=== PATIENT | male | born 1965 | race Caucasian/White ===

== ENCOUNTER 2017-03-11 15:58 | Inpatient (IN) | payer OTHER ==
[2017-03-11 19:19] VITALS: BMI 20.9
--- NOTE | 2017-03-11 22:03 | HP ---
CIWA Score - CIWA Score Nausea/Vomitin-Mild Nausea/No Vomiting Muscle Tremors: 4-Moderate,w/Arms Extend Anxiety: 4-Mod. Anxious/Guarded Agitation: 4-Moderately Restless Paroxysmal Sweats: 1-Minimal Palms Moist Orientation: 0-Oriented Tacttile Disturbances: 0-None Auditory Disturbances: 0-None Visual Disturbances: 0-None Headache: 0-None Present CIWA-Ar Total Score: 14 Admission ROS BHS - HPI Chief Complaint: WITHDRAWAL SX Allergies/Adverse Reactions: Allergies Allergy/AdvReac Type Severity Reaction Status Date / Time fish derived [Fish derived] Allergy Severe Hives Verified 10/16/11 10:43 penicillin G Allergy Severe Hives Verified 10/16/11 10:43 History of Present Illness: 51 YEARS OLD MALE WITH LONG HISTORY OF ALCOHOL COCAINE NICOTINE DEPENDENCE HAS HIV ASTHMA AND BIPOLAR II IS ADMITTED TO DETOX Exam Limitations: No Limitations - Ebola screening Have you traveled outside of the country in the last 21 days: No Have you had contact with anyone from an Ebola affected area: No Have you been sick,other than usual withdrawal symptoms: No Do you have a fever: No - Review of Systems Constitutional: Loss of Appetite, Changes in sleep, Unintentional Wgt. Loss, Unexplained wgt Loss EENT: reports: No Symptoms Reported Respiratory: reports: No Symptoms reported Cardiac: reports: No Symptoms Reported GI: reports: Nausea, Poor Appetite, Poor Fluid Intake, Abdominal cramping : reports: No Symptoms Reported Musculoskeletal: reports: No Symptoms Reported Integumentary: reports: Change in Color (BOTH ARMS IV OPIATE) Neuro: reports: Tremors Endocrine: reports: No Symptoms Reported Hematology: reports: No Symptoms Reported Psychiatric: reports: Judgement Intact, Orientated x3, Anxious, Depressed Other Systems: Reviewed and Negative Patient History - Patient Medical History Hx Anemia: No Hx Asthma: Yes (currently on treatment) Hx Chronic Obstructive Pulmonary Disease (COPD): No Hx Cancer: No Hx Cardiac Disorders: No Hx Congestive Heart Failure: No Hx Hypertension: No Hx Hypercholesterolemia: No Hx Pacemaker: No HX Cerebrovascular Accident: No Hx Seizures: No Hx Dementia: No Hx Diabetes: No Hx Gastrointestinal Disorders: No Hx Liver Disease: No Hx Genitourinary Disorders: No Hx Sexually Transmitted Disorders: No Hx Renal Disease (ESRD): No Hx Thyroid Disease: No Hx Human Immunodeficiency Virus (HIV): Yes (1986) Hx Hepatitis C: Yes Hx Depression: No Hx Suicide Attempt: No Hx Bipolar Disorder: Yes Hx Schizophrenia: No - Patient Surgical History Past Surgical History: No Hx Neurologic Surgery: No Hx Cataract Extraction: No Hx Cardiac Surgery: No Hx Lung Surgery: No Hx Breast Surgery: No Hx Breast Biopsy: No Hx Abdominal Surgery: No Hx Appendectomy: No Hx Cholecystectomy: No Hx Genitourinary Surgery: No Hx Orthopedic Surgery: No - PPD History Previous Implant?: Yes Documented Results: Negative w/proof Implanted On Prior [facility] Admission?: Yes Date: 12/15/10 Results: 0 mm PPD to be Administered?: Yes - Smoking Cessation Smoking history: Current every day smoker Have you smoked in the past 12 months: Yes Aproximately how many cigarettes per day: 3 Cigars Per Day: 0 Hx Chewing Tobacco Use: No Initiated information on smoking cessation: Yes 'Breaking Loose' booklet given: 03/11/17 - Substance & Tx. History Hx Alcohol Use: Yes Hx Substance Use: Yes Substance Use Type: Alcohol, Cocaine, Heroin, Opiates Hx Substance Use Treatment: Yes (2011) - Substances Abused Alcohol Route: Oral Frequency: Daily Amount used: PINT RUM Age of first use: 8 Date of Last Use: 03/11/17 Family Disease History - Family Disease History Family Disease History: Other: Father (NO CONTACT), Mother (NO CONTACT) Other Family History: ONLY CHILD Admission Physical Exam BHS - Vital Signs Vital Signs: Vital Signs - 24 hr 03/11/17 19:16 Temperature 97.6 F Pulse Rate 87 Respiratory 20 Rate Blood Pressure 127/79 - Physical General Appearance: Yes: Appropriately Dressed, Mild Distress, Thin, Tremorous, Irritable, Sweating, Anxious HEENTM: Yes: Hearing grossly Normal, Normal ENT Inspection, Normocephalic, Normal Voice Respiratory: Yes: Chest Non-Tender, Lungs Clear, Normal Breath Sounds, No Respiratory Distress, No Accessory Muscle Use Neck: Yes: Supple, Trachea in good position Breast: Yes: Breasts Symetrical Cardiology: Yes: Regular Rhythm, Regular Rate, S1, S2 Abdominal: Yes: Non Tender, Soft Genitourinary: Yes: Within Normal Limits Back: Yes: Normal Inspection Musculoskeletal: Yes: full range of Motion, Gait Steady Extremities: Yes: Normal Range of Motion, Non-Tender, Tremors Neurological: Yes: Fully Oriented, Alert, Motor Strength 5/5, Normal Response, Depressed Affect Integumentary: Yes: Warm, Track [place] Lymphatic: Yes: Within Normal Limits - Diagnostic (1) Alcohol dependence with uncomplicated withdrawal Current Visit: Yes Status: Acute (2) HIV (human immunodeficiency virus infection) Current Visit: Yes Status: Chronic Comment: PATIENT DOES NOT BRING IN HIS MEDICATION (3) Methadone maintenance therapy patient Current Visit: Yes Status: Chronic Comment: 75 MG VERIFICATION PENDING (4) Asthma Current Visit: Yes Status: Chronic Qualifiers: Asthma severity: mild Asthma persistence: intermittent Asthma complication type: with status asthmaticus Qualified Code(s): J45.22 - Mild intermittent asthma with status asthmaticus; J45.22 - Mild intermittent asthma with status asthmaticus; J45.22 - Mild intermittent asthma with status asthmaticus (5) Nicotine dependence Current Visit: Yes Status: Acute Qualifiers: Nicotine product type: cigarettes Substance use status: in withdrawal Qualified Code(s): F17.213 - Nicotine dependence, cigarettes, with withdrawal; F17.213 - Nicotine dependence, cigarettes, with withdrawal (6) Weight loss Current Visit: Yes Status: Acute (7) Bipolar II disorder Current Visit: Yes Status: Suspected Cleared for Admission S - Detox or Rehab [facility] Level of Care: Medically Managed Detox Regimen/Protocol: Librium [facility] Breath Alcohol Content Breath Alcohol Content: 0 Urine Drug Screen - Results Drug Screen Negative: No Urine Drug Screen Results: ZOHREH-Cocaine, OPI-Opiates, MTD-Methadone
[2017-03-11] MEDS ORDERED: LOPERAMIDE HCL 2 MG CAPSULE PO PRN (22:08)
[2017-03-11] MEDS ORDERED: MENTHOL/PHENOL 1 EACH UD MM PRN (22:08)
[2017-03-11] MEDS ORDERED: MAGNESIUM CITRATE 300 ML BOTTLE PO PRN (22:08)
[2017-03-11] MEDS ORDERED: guaiFENesin/D-METHORPHAN HB 10 ML UNIT-DOSE CUPS PO PRN (22:08)
[2017-03-11] MEDS ORDERED: NICOTINE POLACRILEX 2 MG GUM BC PRN (22:08)
[2017-03-11] MEDS ORDERED: diphenhydrAMINE HCL 50 MG CAPSULE PO PRN (22:08)
[2017-03-11] MEDS ORDERED: MAGNESIUM HYDROX 2400MG/30ML ORAL SUSPENSION 30 ML CUP PO PRN (22:08)
[2017-03-11] MEDS ORDERED: MAG HYDROX/AL HYDROX/SIMETH 30 ML UNIT-DOSE CUP PO PRN (22:08)
[2017-03-11] MEDS ORDERED: IBUPROFEN 400 MG TABLET (FP) PO PRN (22:08)
[2017-03-11] MEDS ORDERED: chlordiazePOXIDE HCL 25 MG CAPSULE PO PRN (22:08)
[2017-03-11] MEDS ORDERED: P-EPHED 60MG/TRIPROLIDI 2.5MG TABLET PO PRN (22:08)
[2017-03-11] MEDS ORDERED: ALBUTEROL SO4 18 GM HFA INHALER IH PRN (22:12)
[2017-03-11] MEDS ORDERED: BACLOFEN 10 MG TABLET (FP) PO PRN (22:13)
[2017-03-12] MEDS: chlordiazePOXIDE HCL 25 MG CAPSULE PO SCH ×5 (01:48→22:20)
[2017-03-12 02:00] LABS: URINE APPEARANCE CLEAR; URINE BILIRUBIN NEGATIVE (NEGATIVE); URINE BLOOD NEGATIVE (NEGATIVE); URINE COLOR YELLOW; URINE GLUCOSE (UA) NEGATIVE (NEGATIVE); URINE KETONE NEGATIVE (NEGATIVE); URINE NITRITE NEGATIVE (NEGATIVE); URINE PROTEIN NEGATIVE (NEGATIVE); URINE UROBILINOGEN NEGATIVE mg/dL (0.2-1.0)
[2017-03-12] MEDS ORDERED: METHADONE HCL 10 MG TABLET PO ONE (08:53)
[2017-03-12] MEDS ORDERED: METHADONE 40 MG, METHADONE 30 MG, METHADONE 5 MG PO ONE (09:08)
[2017-03-12 09:18] LABS: URINE LEUK ESTERASE Negative (NEGATIVE)
[2017-03-12 09:45] LABS: MCH 30.3 pg (25.7-33.7); MCHC 33.4 g/dl (32.0-35.9); MEAN CELL VOLUME 90.6 fl (80-96); MEAN PLT VOLUME 8.5 fl (7.5-11.1); PLATELET COUNT 129 K/MM3 (134-434); RDW 13.7 % (11.9-15.9); WHITE BLOOD COUNT 3.4 K/mm3 (4.0-10.0)
[2017-03-12] MEDS ORDERED: METHADONE HCL 5 MG TABLET ONE (10:01)
[2017-03-12] MEDS ORDERED: METHADONE HCL 10 MG TABLET ONE (10:01)
[2017-03-12] MEDS ORDERED: METHADONE HCL 40 MG DISPERSABLE TABLET ONE (10:02)
[2017-03-12] MEDS: PRENATAL VITAMINS W/ FOLIC ACID TABLET (FP) PO SCH (10:14)
[2017-03-12] MEDS: NICOTINE 14 MG/24 HOURS TOPICAL PATCH TD SCH (10:14)
[2017-03-12 10:32] LABS: ALBUMIN 3.3 g/dl (3.4-5.0); ALK PHOS 93 U/L (45-117); ANION GAP 11 (8-16); BILIRUBIN,TOTAL 0.5 mg/dL (0.2-1.0); CO2 25 mmol/L (21-32); CREATININE 1.2 mg/dL (0.7-1.3); GLUCOSE,RANDOM 90 mg/dL (74-106); SGOT/AST 21 U/L (15-37); SGPT/ALT 19 U/L (12-78)
--- NOTE | 2017-03-12 10:45 | PN ---
[facility] CIWA - CIWA Score Nausea/Vomitin-No Nausea/No Vomiting Muscle Tremors: 4-Moderate,w/Arms Extend Anxiety: 4-Mod. Anxious/Guarded Agitation: 4-Moderately Restless Paroxysmal Sweats: 1-Minimal Palms Moist Orientation: 0-Oriented Tacttile Disturbances: 3-Moderate Itch/Numb/Burn Auditory Disturbances: 0-None Visual Disturbances: 0-None Headache: 0-None Present CIWA-Ar Total Score: 16 BHS Progress Note (SOAP) Subjective: ANXIETY,IRRITABILITY, TREMORS,INTERMITTENT SLEEP. Objective: 03/12/17 10:44 Vital Signs 03/12/17 03/12/17 03/12/17 03:31 06:00 09:20 Temperature 97.7 F 97.1 F L Pulse Rate 71 70 Respiratory 18 18 18 Rate Blood Pressure 131/75 122/69 Laboratory Last Values WBC 3.4 K/mm3 (4.0-10.0) L D 03/12/17 07:00 RBC 3.18 M/mm3 (4.00-5.60) L 03/12/17 07:00 Hgb 9.6 GM/dL (11.7-16.9) L 03/12/17 07:00 Hct 28.8 % (35.4-49) L 03/12/17 07:00 MCV 90.6 fl (80-96) 03/12/17 07:00 MCH 30.3 pg (25.7-33.7) 03/12/17 07:00 MCHC 33.4 g/dl (32.0-35.9) 03/12/17 07:00 RDW 13.7 % (11.9-15.9) 03/12/17 07:00 Plt Count 129 K/MM3 (134-434) L D 03/12/17 07:00 MPV 8.5 fl (7.5-11.1) 03/12/17 07:00 Urine Color Yellow 03/11/17 23:29 Urine Appearance Clear 03/11/17 23:29 Urine pH 6.0 (5.0-8.0) 03/11/17 23:29 Ur Specific [place] 1.020 (1.005-1.025) 03/11/17 23:29 Urine Protein Negative (NEGATIVE) 03/11/17 23:29 Urine Glucose (UA) Negative (NEGATIVE) 03/11/17 23:29 Urine Ketones Negative (NEGATIVE) 03/11/17 23:29 Urine Blood Negative (NEGATIVE) 03/11/17 23:29 Urine Nitrite Negative (NEGATIVE) 03/11/17 23:29 Urine Bilirubin Negative (NEGATIVE) 03/11/17 23:29 Urine Urobilinogen Negative mg/dL (0.2-1.0) 03/11/17 23:29 Ur Leukocyte Esterase Negative (NEGATIVE) 03/11/17 23:29 RPR Titer Nonreactive (NONREACTIVE) 03/12/17 07:00 Assessment: 03/12/17 10:45 WITHDRAWAL SX Plan: CONTINUE DETOX
--- NOTE | 2017-03-12 14:18 | CONSULT ---
[facility] Psychiatric Consult - Data Date of interview: 03/12/17 Admission source: [facility] Identifying data: Readmission to [facility] for this 51 y/o male seeking detox treatment on 3 for heroin,alcohol anc cocaine dependence.Patient is single without children,domiciled,unemployed and supported on [employer] benefits. Substance Abuse History: Confirmed by patient in this session. Smoking Cessation. Smoking history: Current every day smoker. Have you smoked in the past 12 months: Yes. Aproximately how many cigarettes per day: 3. Cigars Per Day: 0. Hx Chewing Tobacco Use: No. Initiated information on smoking cessation : Yes. 'Breaking Loose' booklet given: 03/11/17. - Substance & Tx. History. Hx Alcohol Use: Yes. Hx Substance Use: Yes. Substance Use Type: Alcohol, Cocaine, Heroin, Opiates. Hx Substance Use Treatment: Yes (2011). - Substances Abused. Alcohol. Route: Oral. Frequency: Daily. Amount used: PINT RUM. Age of first use: 8. Date of Last Use: 03/11/17 Medical History: HIV infection since 1986 (on ART medications). Psychiatric History: No history of psychiatric hospitalizations.Mr Moreira is currently on methadone maintenance (75 mg/day). Physical/Sexual Abuse/Trauma History: Denies. Additional Comment: Urine Drug Screen Results: ZOHREH-Cocaine, OPI-Opiates, MTD- Methadone.Noted. Mental Status Exam - Mental Status Exam Alert and Oriented to: Time, Place, Person Cognitive Function: Good Patient Appearance: Well Groomed Mood: Hopeful, Euthymic Affect: Appropriate, Normal Range Patient Behavior: Fatigued, Appropriate, Cooperative Speech Pattern: Clear Voice Loudness: Normal Thought Process: Intact, Goal Oriented Thought Disorder: Not Present Hallucinations: Denies Suicidal Ideation: Denies Homicidal Ideation: Denies Insight/Judgement: Poor Sleep: Poorly, Difficulty falling asleep Appetite: Good Muscle strength/Tone: Normal Gait/Station: Normal Psychiatric Findings - Problem List ([place] 1, 2,3) (1) Alcohol dependence with uncomplicated withdrawal Current Visit: Yes Status: Acute (2) Cocaine dependence Current Visit: Yes Status: Acute (3) Opioid dependence on agonist therapy Current Visit: Yes Status: Acute (4) Nicotine dependence Current Visit: Yes Status: Acute Qualifiers: Nicotine product type: cigarettes Substance use status: in withdrawal Qualified Code(s): F17.213 - Nicotine dependence, cigarettes, with withdrawal; F17.213 - Nicotine dependence, cigarettes, with withdrawal (5) Weight loss Current Visit: Yes Status: Chronic (6) Asthma Current Visit: Yes Status: Chronic Qualifiers: Asthma severity: mild Asthma persistence: intermittent Asthma complication type: uncomplicated Qualified Code(s): J45.20 - Mild intermittent asthma, uncomplicated; J45.20 - Mild intermittent asthma, uncomplicated; J45.20 - Mild intermittent asthma, uncomplicated (7) HIV (human immunodeficiency virus infection) Current Visit: Yes Status: Chronic Comment: PATIENT DOES NOT BRING IN HIS MEDICATION (8) Insomnia Current Visit: Yes Status: Acute - Initial Treatment Plan Initial Treatment Plan: Psychoeducation.Detoxification.Ambien 10 mg po hs.Patient is made aware of potential for parasomnias.Observation.
[2017-03-12] MEDS: THIAMINE HCL 100 MG TABLET (FP) PO SCH (22:20)
[2017-03-12] MEDS: ZOLPIDEM TARTRATE 10 MG TABLET (PARK CARE ONLY) PO PRN (22:20)
[2017-03-13] MEDS ORDERED: METHADONE HCL 10 MG TABLET ONE (04:02)
[2017-03-13] MEDS ORDERED: METHADONE HCL 5 MG TABLET ONE (04:03)
[2017-03-13] MEDS ORDERED: METHADONE HCL 40 MG DISPERSABLE TABLET ONE (04:03)
[2017-03-13] MEDS: chlordiazePOXIDE HCL 25 MG CAPSULE PO SCH ×3 (05:33→16:36)
[2017-03-13] MEDS: METHADONE 40 MG, METHADONE 30 MG, METHADONE 5 MG PO SCH (05:33)
[2017-03-13] MEDS ORDERED: METHADONE HCL 10 MG TABLET PO SCH (06:00)
[2017-03-13] MEDS: PRENATAL VITAMINS W/ FOLIC ACID TABLET (FP) PO SCH (10:12)
[2017-03-13] MEDS: NICOTINE 14 MG/24 HOURS TOPICAL PATCH TD SCH (10:12)
--- NOTE | 2017-03-13 11:08 | PN ---
[facility] CIWA - CIWA Score Nausea/Vomitin-No Nausea/No Vomiting Muscle Tremors: 4-Moderate,w/Arms Extend Anxiety: 4-Mod. Anxious/Guarded Agitation: 4-Moderately Restless Paroxysmal Sweats: 1-Minimal Palms Moist Orientation: 0-Oriented Tacttile Disturbances: 3-Moderate Itch/Numb/Burn Auditory Disturbances: 0-None Visual Disturbances: 0-None Headache: 0-None Present CIWA-Ar Total Score: 16 BHS Progress Note (SOAP) Subjective: ANXIETY,SWEATS,TREMORS,IRRITABILITY. Objective: 03/13/17 11:07 Vital Signs Temperature 97.7 F 03/13/17 09:26 Pulse Rate 77 03/13/17 09:26 Respiratory Rate 18 03/13/17 09:26 Blood Pressure 107/60 03/13/17 09:26 O2 Sat by Pulse Oximetry (%) Laboratory Last Values WBC 3.4 K/mm3 (4.0-10.0) L D 03/12/17 07:00 RBC 3.18 M/mm3 (4.00-5.60) L 03/12/17 07:00 Hgb 9.6 GM/dL (11.7-16.9) L 03/12/17 07:00 Hct 28.8 % (35.4-49) L 03/12/17 07:00 MCV 90.6 fl (80-96) 03/12/17 07:00 MCH 30.3 pg (25.7-33.7) 03/12/17 07:00 MCHC 33.4 g/dl (32.0-35.9) 03/12/17 07:00 RDW 13.7 % (11.9-15.9) 03/12/17 07:00 Plt Count 129 K/MM3 (134-434) L D 03/12/17 07:00 MPV 8.5 fl (7.5-11.1) 03/12/17 07:00 Sodium 140 mmol/L (136-145) 03/12/17 07:00 Potassium 4.5 mmol/L (3.5-5.1) 03/12/17 07:00 Chloride 104 mmol/L (98-107) 03/12/17 07:00 Carbon Dioxide 25 mmol/L (21-32) 03/12/17 07:00 Anion Gap 11 (8-16) 03/12/17 07:00 BUN 21 mg/dL (7-18) H 03/12/17 07:00 Creatinine 1.2 mg/dL (0.7-1.3) D 03/12/17 07:00 Creat Clearance w eGFR > 60 (>60) 03/12/17 07:00 Random Glucose 90 mg/dL (74-106) 03/12/17 07:00 Calcium 8.0 mg/dL (8.5-10.1) L 03/12/17 07:00 Total Bilirubin 0.5 mg/dL (0.2-1.0) D 03/12/17 07:00 AST 21 U/L (15-37) 03/12/17 07:00 ALT 19 U/L (12-78) 03/12/17 07:00 Alkaline Phosphatase 93 U/L (45-117) 03/12/17 07:00 Total Protein 7.0 g/dl (6.4-8.2) 03/12/17 07:00 Albumin 3.3 g/dl (3.4-5.0) L 03/12/17 07:00 Urine Color Yellow 03/11/17 23:29 Urine Appearance Clear 03/11/17 23:29 Urine pH 6.0 (5.0-8.0) 03/11/17 23:29 Ur Specific [place] 1.020 (1.005-1.025) 03/11/17 23:29 Urine Protein Negative (NEGATIVE) 03/11/17 23:29 Urine Glucose (UA) Negative (NEGATIVE) 03/11/17 23:29 Urine Ketones Negative (NEGATIVE) 03/11/17 23:29 Urine Blood Negative (NEGATIVE) 03/11/17 23:29 Urine Nitrite Negative (NEGATIVE) 03/11/17 23:29 Urine Bilirubin Negative (NEGATIVE) 03/11/17 23:29 Urine Urobilinogen Negative mg/dL (0.2-1.0) 03/11/17 23:29 Ur Leukocyte Esterase Negative (NEGATIVE) 03/11/17 23:29 RPR Titer Nonreactive (NONREACTIVE) 03/12/17 07:00 Assessment: 03/13/17 11:07 WITHDRAWAL SX Plan: CONTINUE DETOX
--- NOTE | 2017-03-13 11:58 | EKG ---
Test Reason : Blood Pressure : / mmHG Vent. Rate : 065 BPM Atrial Rate : 065 BPM P-R Int : 116 ms QRS Dur : 088 ms QT Int : 438 ms P-R-T Axes : 016 055 053 degrees QTc Int : 455 ms NORMAL SINUS RHYTHM NORMAL ECG NO PREVIOUS ECGS AVAILABLE Confirmed by JORY GOMEZ, TAMI ([id number]) on 03/13/2017 11:58:38 AM Referred By: Confirmed By:TAMI CORLEY MD
[2017-03-13] MEDS: ZOLPIDEM TARTRATE 10 MG TABLET (PARK CARE ONLY) PO PRN (22:17)
[2017-03-13] MEDS: THIAMINE HCL 100 MG TABLET (FP) PO SCH (22:18)
[2017-03-13] MEDS: chlordiazePOXIDE 5 MG CAPSULE PO SCH (22:18)
[2017-03-14] MEDS ORDERED: METHADONE HCL 40 MG DISPERSABLE TABLET ONE (04:27)
[2017-03-14] MEDS ORDERED: METHADONE HCL 10 MG TABLET ONE (04:27)
[2017-03-14] MEDS ORDERED: METHADONE HCL 5 MG TABLET ONE (04:28)
[2017-03-14] MEDS: METHADONE 40 MG, METHADONE 30 MG, METHADONE 5 MG PO SCH (05:36)
[2017-03-14] MEDS: chlordiazePOXIDE 5 MG CAPSULE PO SCH ×3 (05:36→18:02)
[2017-03-14] MEDS: PRENATAL VITAMINS W/ FOLIC ACID TABLET (FP) PO SCH (10:13)
[2017-03-14] MEDS: NICOTINE 14 MG/24 HOURS TOPICAL PATCH TD SCH (10:15)
--- NOTE | 2017-03-14 10:17 | PN ---
BHS Progress Note (SOAP) Subjective: SLIGHT ANXIETY,IRRITABILITY,FATIGUE.OOB AMBULATING WITH STAEDY GAIT. Objective: 03/14/17 10:16 Vital Signs Temperature 98.2 F 03/14/17 09:16 Pulse Rate 90 03/14/17 09:16 Respiratory Rate 20 03/14/17 09:16 Blood Pressure 105/58 03/14/17 09:16 O2 Sat by Pulse Oximetry (%) Laboratory Last Values WBC 3.4 K/mm3 (4.0-10.0) L D 03/12/17 07:00 RBC 3.18 M/mm3 (4.00-5.60) L 03/12/17 07:00 Hgb 9.6 GM/dL (11.7-16.9) L 03/12/17 07:00 Hct 28.8 % (35.4-49) L 03/12/17 07:00 MCV 90.6 fl (80-96) 03/12/17 07:00 MCH 30.3 pg (25.7-33.7) 03/12/17 07:00 MCHC 33.4 g/dl (32.0-35.9) 03/12/17 07:00 RDW 13.7 % (11.9-15.9) 03/12/17 07:00 Plt Count 129 K/MM3 (134-434) L D 03/12/17 07:00 MPV 8.5 fl (7.5-11.1) 03/12/17 07:00 Sodium 140 mmol/L (136-145) 03/12/17 07:00 Potassium 4.5 mmol/L (3.5-5.1) 03/12/17 07:00 Chloride 104 mmol/L (98-107) 03/12/17 07:00 Carbon Dioxide 25 mmol/L (21-32) 03/12/17 07:00 Anion Gap 11 (8-16) 03/12/17 07:00 BUN 21 mg/dL (7-18) H 03/12/17 07:00 Creatinine 1.2 mg/dL (0.7-1.3) D 03/12/17 07:00 Creat Clearance w eGFR > 60 (>60) 03/12/17 07:00 Random Glucose 90 mg/dL (74-106) 03/12/17 07:00 Calcium 8.0 mg/dL (8.5-10.1) L 03/12/17 07:00 Total Bilirubin 0.5 mg/dL (0.2-1.0) D 03/12/17 07:00 AST 21 U/L (15-37) 03/12/17 07:00 ALT 19 U/L (12-78) 03/12/17 07:00 Alkaline Phosphatase 93 U/L (45-117) 03/12/17 07:00 Total Protein 7.0 g/dl (6.4-8.2) 03/12/17 07:00 Albumin 3.3 g/dl (3.4-5.0) L 03/12/17 07:00 Urine Color Yellow 03/11/17 23:29 Urine Appearance Clear 03/11/17 23:29 Urine pH 6.0 (5.0-8.0) 03/11/17 23:29 Ur Specific [place] 1.020 (1.005-1.025) 03/11/17 23:29 Urine Protein Negative (NEGATIVE) 03/11/17 23:29 Urine Glucose (UA) Negative (NEGATIVE) 03/11/17 23:29 Urine Ketones Negative (NEGATIVE) 03/11/17 23:29 Urine Blood Negative (NEGATIVE) 03/11/17 23:29 Urine Nitrite Negative (NEGATIVE) 03/11/17 23:29 Urine Bilirubin Negative (NEGATIVE) 03/11/17 23:29 Urine Urobilinogen Negative mg/dL (0.2-1.0) 03/11/17 23:29 Ur Leukocyte Esterase Negative (NEGATIVE) 03/11/17 23:29 RPR Titer Nonreactive (NONREACTIVE) 03/12/17 07:00 Assessment: 03/14/17 10:16 WITHDRAWAL SX Plan: CONTINUE DETOX
[2017-03-14] MEDS: ACETAMINOPHEN 325 MG TABLET (FP) PO PRN (18:02)
[2017-03-14] MEDS: THIAMINE HCL 100 MG TABLET (FP) PO SCH ×2 (22:28→22:31)
[2017-03-14] MEDS: chlordiazePOXIDE HCL 10 MG CAPSULE PO SCH (22:29)
[2017-03-14] MEDS: ZOLPIDEM TARTRATE 10 MG TABLET (PARK CARE ONLY) PO PRN (22:29)
[2017-03-15] MEDS: ACETAMINOPHEN 325 MG TABLET (FP) PO PRN (01:12)
[2017-03-15] MEDS ORDERED: METHADONE HCL 10 MG TABLET ONE ×2 (04:29→08:44)
[2017-03-15] MEDS ORDERED: METHADONE HCL 5 MG TABLET ONE ×2 (04:30→08:44)
[2017-03-15] MEDS ORDERED: METHADONE HCL 40 MG DISPERSABLE TABLET ONE ×2 (04:30→08:44)
[2017-03-15] MEDS: METHADONE 40 MG, METHADONE 30 MG, METHADONE 5 MG PO SCH (05:46)
[2017-03-15] MEDS: chlordiazePOXIDE HCL 10 MG CAPSULE PO SCH ×2 (05:46→10:29)
[2017-03-15 06:36] VITALS: BP 113/68; PULSE 78; TEMP 99.3
--- NOTE | 2017-03-15 09:26 | DS ---
[facility] Detox Discharge Summary Admission Date: 03/11/17 Discharge Date: 03/15/17 - History Present History: Alcohol Dependence, Cocaine Dependence, MMTP Additional Comments: DETOX COMPLETED. ALERT O X 3. PT REMINDED TO FOLLOW UP WITH HIS PMD DR JAVED AT [address] [facility] FOR MEDICAL MANAGEMENT OF COMORBID CONDITIONS. Pertinent Past History: HIV+ ASTHMA WEIGHT LOSS - Physical Exam Results Vital Signs: Vital Signs Temperature 99.3 F 03/15/17 06:35 Pulse Rate 78 03/15/17 06:35 Respiratory Rate 16 03/15/17 06:35 Blood Pressure 113/68 03/15/17 06:35 O2 Sat by Pulse Oximetry (%) Pertinent Admission Physical Exam Findings: WITHDRAWAL SX Laboratory Last Values WBC 3.4 K/mm3 (4.0-10.0) L D 03/12/17 07:00 RBC 3.18 M/mm3 (4.00-5.60) L 03/12/17 07:00 Hgb 9.6 GM/dL (11.7-16.9) L 03/12/17 07:00 Hct 28.8 % (35.4-49) L 03/12/17 07:00 MCV 90.6 fl (80-96) 03/12/17 07:00 MCH 30.3 pg (25.7-33.7) 03/12/17 07:00 MCHC 33.4 g/dl (32.0-35.9) 03/12/17 07:00 RDW 13.7 % (11.9-15.9) 03/12/17 07:00 Plt Count 129 K/MM3 (134-434) L D 03/12/17 07:00 MPV 8.5 fl (7.5-11.1) 03/12/17 07:00 Sodium 140 mmol/L (136-145) 03/12/17 07:00 Potassium 4.5 mmol/L (3.5-5.1) 03/12/17 07:00 Chloride 104 mmol/L (98-107) 03/12/17 07:00 Carbon Dioxide 25 mmol/L (21-32) 03/12/17 07:00 Anion Gap 11 (8-16) 03/12/17 07:00 BUN 21 mg/dL (7-18) H 03/12/17 07:00 Creatinine 1.2 mg/dL (0.7-1.3) D 03/12/17 07:00 Creat Clearance w eGFR > 60 (>60) 03/12/17 07:00 Random Glucose 90 mg/dL (74-106) 03/12/17 07:00 Calcium 8.0 mg/dL (8.5-10.1) L 03/12/17 07:00 Total Bilirubin 0.5 mg/dL (0.2-1.0) D 03/12/17 07:00 AST 21 U/L (15-37) 03/12/17 07:00 ALT 19 U/L (12-78) 03/12/17 07:00 Alkaline Phosphatase 93 U/L (45-117) 03/12/17 07:00 Total Protein 7.0 g/dl (6.4-8.2) 03/12/17 07:00 Albumin 3.3 g/dl (3.4-5.0) L 03/12/17 07:00 Urine Color Yellow 03/11/17 23:29 Urine Appearance Clear 03/11/17 23:29 Urine pH 6.0 (5.0-8.0) 03/11/17 23:29 Ur Specific [place] 1.020 (1.005-1.025) 03/11/17 23:29 Urine Protein Negative (NEGATIVE) 03/11/17 23:29 Urine Glucose (UA) Negative (NEGATIVE) 03/11/17 23:29 Urine Ketones Negative (NEGATIVE) 03/11/17 23:29 Urine Blood Negative (NEGATIVE) 03/11/17 23:29 Urine Nitrite Negative (NEGATIVE) 03/11/17 23:29 Urine Bilirubin Negative (NEGATIVE) 03/11/17 23:29 Urine Urobilinogen Negative mg/dL (0.2-1.0) 03/11/17 23:29 Ur Leukocyte Esterase Negative (NEGATIVE) 03/11/17 23:29 RPR Titer Nonreactive (NONREACTIVE) 03/12/17 07:00 - Treatment Hospital Course: Detox Protocol Followed, Detoxed Safely, Responded well, Discharged Condition Good - Medication Discharge Medications: Ambulatory Orders Albuterol Sulfate [Proventil HFA Inhaler -] 2 inh PO PRN PRN 03/12/17 Zolpidem Tartrate [Ambien] 10 mg PO HS 03/12/17 - Diagnosis (1) Alcohol dependence with uncomplicated withdrawal Current Visit: Yes Status: Acute (2) Nicotine dependence Current Visit: Yes Status: Acute Qualifiers: Nicotine product type: cigarettes Substance use status: in withdrawal Qualified Code(s): F17.213 - Nicotine dependence, cigarettes, with withdrawal; F17.213 - Nicotine dependence, cigarettes, with withdrawal (3) Weight loss Current Visit: Yes Status: Chronic (4) Asthma Current Visit: Yes Status: Chronic Qualifiers: Asthma severity: mild Asthma persistence: intermittent Asthma complication type: uncomplicated Qualified Code(s): J45.20 - Mild intermittent asthma, uncomplicated; J45.20 - Mild intermittent asthma, uncomplicated; J45.20 - Mild intermittent asthma, uncomplicated (5) HIV (human immunodeficiency virus infection) Current Visit: Yes Status: Chronic (6) Methadone maintenance therapy patient Current Visit: Yes Status: Chronic - AMA Did Patient Leave Against Medical Advice: No
[2017-03-15] MEDS: PRENATAL VITAMINS W/ FOLIC ACID TABLET (FP) PO SCH (10:26)
[2017-03-15] MEDS: NICOTINE 14 MG/24 HOURS TOPICAL PATCH TD SCH (10:28)
== END 2017-03-15 10:32 | disposition home or self-care (01) | DRG 773 ==
LOC: YASAS 15:58 → Y3N 22:43
PROVIDERS: ADMIT Internal Medicine; ATTEND Internal Medicine
PROC: HZ2ZZZZ Detoxification Services for Substance Abuse Treatment (ICD-10-PCS; principal; 2017-03-11)
DX: F11.20 Opioid dependence, uncomplicated (principal); F10.230 Alcohol dependence with withdrawal, uncomplicated; F17.213 Nicotine dependence, cigarettes, with withdrawal; F31.81 Bipolar II disorder; Z21 Asymptomatic human immunodeficiency virus [HIV] infection status; J45.20 Mild intermittent asthma, uncomplicated; G47.00 Insomnia, unspecified; R63.4 Abnormal weight loss; Z68.20 Body mass index [BMI] 20.0-20.9, adult
CPT/HCPCS: 36415; 80053; 81003; 85027; 86593; 93005; 93010; J0475